=== PATIENT | female | born 1935 | race Caucasian/White ===

== ENCOUNTER → 2016-06-16 | Outpatient (CLI) | payer OTHER ==
[~2016-06-16] MED LIST: ASPEC325 PO; CLB/200 PO; CLC100X PO; GLIM4TAB2 PO; HYDR25TA4 PO; LOSA100T65 PO; OXYSR10 PO; RXC5 PO; SENN8.6T94; SIMV40TA4 PO; ZNTT/150 PO
[2016-06-16 12:48] LABS: ALT/SGPT 28 U/L (12-78); AST/SGOT 16 U/L (15-37); BLOOD UREA NITROGEN 32 mg/dl (7-18); BUN/CREATININE RATIO 21.6 (10-20); CALCIUM 9.5 mg/dl (8.5-10.1); CARBON DIOXIDE 29 mmol/L (21-32); CHLORIDE 103 mmol/L (98-107); GLUCOSE 142 mg/dl (70-99); SODIUM 140 mmol/L (136-145)
[2016-06-16 12:50] LABS: ALKALINE PHOSPHATASE 49 U/L (45-117)
[2016-06-16 13:00] LABS: ESTIMATED AVERAGE GLUCOSE 128 mg/dl; HA1C FLAG Normal (Normal)
== END | disposition home or self-care (01) ==
LOC: C.LABPVFM 08:31
PROVIDERS: ATTEND Nurse Practitioner Family
DX: E11.9 Type 2 diabetes mellitus without complications (principal); N18.9 Chronic kidney disease, unspecified

== ENCOUNTER → 2016-12-16 | Outpatient (CLI) | payer OTHER ==
[2016-12-16 13:52] LABS: BLOOD UREA NITROGEN 33 mg/dl (7-18); BUN/CREATININE RATIO 22.1 (10-20); CALCIUM 9.9 mg/dl (8.5-10.1); CARBON DIOXIDE 26 mmol/L (21-32); CHLORIDE 102 mmol/L (98-107); GLUCOSE 140 mg/dl (70-99); POTASSIUM 3.8 mmol/L (3.5-5.1); SODIUM 138 mmol/L (136-145)
[2016-12-16 13:56] LABS: ALKALINE PHOSPHATASE 46 U/L (45-117); ALT/SGPT 20 U/L (12-78); AST/SGOT 19 U/L (15-37); CHOLESTEROL 174 mg/dl (0-200); CHOLESTEROL/HDL RATIO 3.2; HDL CHOLESTEROL 54 mg/dl; LDL CHOLESTEROL CALCULATED 85 mg/dl; TRIGLYCERIDES 176 mg/dl (0-150); VERY LOW DENSITY LIPOPROT CALC 35 mg/dl
== END | disposition home or self-care (01) ==
LOC: C.LABPVFM 08:33
PROVIDERS: ATTEND Nurse Practitioner Family
DX: I10 Essential (primary) hypertension (principal); E11.9 Type 2 diabetes mellitus without complications; N18.9 Chronic kidney disease, unspecified

== ENCOUNTER → 2016-12-30 | Outpatient (CLI) | payer OTHER ==
[2016-12-30 12:28] LABS: HEMATOCRIT 42.6 % (37-47); MEAN CELL VOLUME 99.5 fL (80-100); MEAN CORPUSCULAR HEMOGLOBIN 32.7 pg (25-34); MEAN CORPUSCULAR HGB CONC 32.9 g/dl (32-36); PLATELET COUNT 249 K/uL (130-400); RED BLOOD COUNT 4.28 M/uL (4.2-5.4); WHITE BLOOD COUNT 9.67 K/uL (4.8-10.8)
== END | disposition home or self-care (01) ==
LOC: C.LABPVFM 08:32
PROVIDERS: ATTEND Nurse Practitioner Family
DX: E11.22 Type 2 diabetes mellitus with diabetic chronic kidney disease (principal); N18.9 Chronic kidney disease, unspecified

== ENCOUNTER → 2017-06-16 | Outpatient (CLI) | payer OTHER ==
[~2017-06-16] MED LIST changes: +RANI150T85 PO; -ZNTT/150 PO
[2017-06-16 13:36] LABS: HEMOGLOBIN A1C 6.2 % (4.5-5.6)
[2017-06-16 14:39] LABS: ALBUMIN 3.5 gm/dl (3.4-5.0); ALT/SGPT 20 U/L (12-78); AST/SGOT 17 U/L (15-37); BLOOD UREA NITROGEN 28 mg/dl (7-18); CALCIUM 9.4 mg/dl (8.5-10.1); CARBON DIOXIDE 27 mmol/L (21-32); CREATININE 1.38 mg/dl (0.60-1.20); GLUCOSE 124 mg/dl (70-99); POTASSIUM 3.8 mmol/L (3.5-5.1); SODIUM 138 mmol/L (136-145)
[2017-06-16 14:42] LABS: ALKALINE PHOSPHATASE 55 U/L (45-117); CHOLESTEROL 230 mg/dl (0-200); LDL CHOLESTEROL CALCULATED 140 mg/dl; TOTAL PROTEIN 7.3 gm/dl (6.4-8.2)
== END | disposition home or self-care (01) ==
LOC: C.LABPVFM 08:30
PROVIDERS: ATTEND Nurse Practitioner Family
DX: I12.9 Hypertensive chronic kidney disease with stage 1 through stage 4 chronic kidney disease, or unspecified chronic kidney disease (principal); E78.2 Mixed hyperlipidemia; E11.22 Type 2 diabetes mellitus with diabetic chronic kidney disease; N18.9 Chronic kidney disease, unspecified

== ENCOUNTER 2023-09-11 09:46 | Inpatient (IN) ==
[2023-09-11] MEDS: OPTIRAY 320 125ml IV ONE (10:00)
--- NOTE | 2023-09-11 10:08 | CT Scan Report ---
CT OF THE HEAD WITHOUT CONTRAST CLINICAL HISTORY: neuro deficit, acute stroke suspected COMPARISON STUDY: No previous studies for comparison. CT DOSE: 1198.48 mGy.cm TECHNIQUE: Helical axial images of the head were obtained without IV contrast. Automated exposure con trol was utilized for the study. A dose lowering technique was utilized adhering to the principles o f ALARA. FINDINGS: No acute intracranial hemorrhage is present. There is extensive hypodensity within the left MCA distribution consistent with an acute infarct. There is mild mass effect with sulcal effacement and mild compression of the left lateral ventricle. There is no evidence for herniation. Basal cister ns are patent. There are no extra-axial collections. Moderate presumed small vessel disease is presen t. IMPRESSION: 1. No acute intracranial hemorrhage. 2. Findings consistent with a large acute left MCA territory infarct. Mild mass effect with sulcal ef facement and mild compression of the left lateral ventricle. Findings discussed with Dr. Lucía delgadillo of dictation. ACT 112: Negative or not required by law. Electronically signed by: Zurdo Weiner M.D. 09/11/2023 10:06 AM
[2023-09-11 10:10] LABS: Basophils # (auto) 0.04 K/uL (0.00-0.20); Basophils % (auto) 0.4 %; Eosinophils # (auto) 0.07 K/uL (0.00-0.50); Eosinophils % (auto) 0.8 %; Hematocrit (blood only) 30.2 % (37.0-47.0); Hemoglobin 9.7 g/dl (12.0-16.0); Immature Granulocytes # (auto) 0.03 K/uL (0.01-0.20); Immature Granulocytes % (auto) 0.3 %; Lymphocytes # (auto) 1.16 K/uL (1.20-3.40); Lymphocytes % (auto) 12.5 %; Mean Corpuscular Hemoglobin 30.9 pg (25.0-34.0); Mean Corpuscular Hgb Conc 32.1 g/dL (32.0-36.0); Mean Corpuscular Volume 96.2 fL (80.0-100.0); Mean Platelet Volume 11.7 fL (9.4-12.4); Monocytes # (auto) 0.56 K/uL (0.11-0.59); Platelet Count 308 K/uL (130-400); RDW Coefficient of Variation 13.2 % (11.5-14.5); RDW Standard Deviation 46.6 fL (36.4-46.3); Red Blood Count 3.14 M/uL (4.20-5.40); White Blood Count 9.26 K/ul (4.8-10.8)
--- NOTE | 2023-09-11 10:17 | CT Scan Report ---
CT ANGIOGRAPHY OF THE NECK WITH CONTRAST CLINICAL HISTORY: neuro deficit, acute stroke suspected COMPARISON STUDY: No previous studies for comparison. Technique: CT angiography of the carotid and vertebral arteries was obtained using Optiray and 3D rec onstruction on an independent workstation. NASCET criteria was utilized. Automated exposure control was utilized for the study. A dose lowering technique was utilized adhering to the principles of ALA RA. Findings: Incidental note is made of several segmental pulmonary emboli within visualized portions of the right upper lung. There is interlobular septal thickening. Bilateral pleural effusions, right la rger left, are partially imaged. There are no cervical spine fractures. There is no cervical lymphade nopathy. There is medialization of the left vocal cord. Extensive plaque within the proximal right in ternal carotid artery results in severe stenosis with approximate 90% narrowing. There is extensive p laque within the proximal left internal carotid artery which results in 40% stenosis. The origins of the vertebral arteries are suboptimally assessed due to artifact. The vertebral arteries are patent. There is no aneurysm or dissection within the neck. IMPRESSION: 1. Severe stenosis (90%) of the proximal right internal carotid artery. 40% stenosis of the proximal left internal carotid artery. Extensive atherosclerotic plaque. 2. Several segmental pulmonary emboli within the right upper lobe. 3. Interstitial pulmonary edema with partially visualized bilateral pleural effusions. ACT 112: Negative or not required by law. Electronically signed by: Zurdo Weiner M.D. 09/11/2023 10:15 AM
[2023-09-11 10:21] LABS: INR 1.1 (0.9-1.1); Partial Thromboplastin Ratio 0.9; Partial Thromboplastin Time 23 Seconds (21-31); Prothrombin Time 11.8 Seconds (9.0-12.0)
--- NOTE | 2023-09-11 10:23 | CT Scan Report ---
CTA ANGIOGRAPHY OF THE HEAD CLINICAL HISTORY: neuro deficit, acute stroke suspected COMPARISON STUDY: No previous studies for comparison. TECHNIQUE: Helical axial images of the head were obtained following uneventful intravenous administr ation of 120 cc of Optiray. Sagittal and coronal reconstructions were viewed as well as maximal inten sity projections on an independent 3-D workstation. Automated exposure control was utilized for the study. A dose lowering technique was utilized adhering to the principles of ALARA. FINDINGS: There is abrupt occlusion of the distal left middle cerebral artery with trace flow within a few left sylvian vessels. This accounts for the acute infarct within left MCA distribution on head CT which will be reported separately. There is no acute intracranial hemorrhage. Mild mass effect is present. There is extensive plaque within bilateral cavernous carotids which results in moderate sten osis. The bilateral A1 and A2 segments are patent. The right M1 and M2 segments are patent. Severe st enoses within the posterior circulation are noted. Specifically, there are severe stenosis within the bilateral vertebral arteries as well as the basilar artery and right posterior cerebral artery. Ther e is persistence of the left posterior cerebral artery. IMPRESSION: 1. Occlusion of the distal left M1 segment with trace flow within a few sylvian vessels. This account s for the acute left MCA distribution infarct depicted on head CT. 2. Severe multifocal stenoses within the posterior circulation, as detailed above. 3. Extensive plaque within bilateral cavernous carotids which results in moderate stenosis of the yandel ateral cavernous carotids. ACT 112: Negative or not required by law. Electronically signed by: Zurdo Weiner M.D. 09/11/2023 10:20 AM
[2023-09-11 10:28] LABS: Appearance Urine Clear (Clear); Bacteria Urine Automated None Seen (None Seen); Bilirubin Urine Negative (Negative); Blood Urine Negative (Negative); Color Urine Yellow; Epithelial Cell Urine Auto 0-2 /hpf (0-2); Glucose Urine UA Negative (Negative); Ketones Urine Trace (Negative); Leukocyte Esterase Urine Trace (Negative); Nitrite Urine Negative (Negative); Protein Urine Negative (Negative); RBC Urine Automated 0-2 /hpf (0-2); Urobilinogen Urine Negative (Negative); WBC Urine Automated 0-5 /hpf (0-5)
[2023-09-11 10:33] LABS: Albumin Globulin Ratio 1.1 (0.9-2); Albumin Level 2.9 gm/dl (3.4-5.0); BUN Creatinine Ratio 33.6 (10-20); Bilirubin,Total 0.3 mg/dl (0.2-1.0); Creatinine Clr Calc Pharmacy 27.3 ml/min; Est GFR (African American) 37.8 ml/min; Est GFR (Non-African American) 32.6 ml/min; Globulin 2.7 gm/dl (2.5-4.0); Magnesium 2.2 mg/dl (1.7-2.4); Potassium 3.8 mmol/L (3.5-5.1); Total Protein 5.6 gm/dl (6.0-8.3)
--- NOTE | 2023-09-11 10:33 | Emergency Department Note ---
Impression & Plan Acute stroke due to ischemia, Internal carotid artery occlusion, Pulmonary emboli ED Provider Note NAME: ROJELIO LAWSON AGE: 87 SEX: Female INFORMANT: EMS, family ED PROVIDER(S): Siva Castrejon MD CHIEF COMPLAINT: Stroke alert PLAN: Disposition: Admitted Outpatient prescription management: none Referral: None MEDICAL DECISION MAKING: Patient presented because of strokelike symptoms. She was made stroke alert by prehospital medical command done by me. Patient was taken emergently to CT imaging. She was evaluated immediately upon returning back from imaging. The patient had a last known well time around 0500 hrs. Family states that she was altered around 0800 hrs. by reports from the [facility] care facility to them via phone call. Patient has a large acute MCA territory stroke on CT imaging. She has an NIH stroke scale approximately 30. The patient had an emergent consultation placed with [facility]roke, Dr. Busch. The case was discussed and reviewed. He did evaluate the imaging and was considering discussion with their interventional list. I did meet with the family and talk to them at length. The patient had previously outlined and family confirmed that she does not want to have any surgery, intervention or invasive procedure. She is a DNR/DNI. I discussed possible outcomes with this stroke. I did discuss case again with Dr. Busch. In light of the patient's pre-existing wishes and confirmation by family further care was deferred. He noted no invasive intervention or transfer at this time. He did recommend aspirin and normal stroke care. After neurology consultation radiology did note that the patient appears to have pulmonary emboli in the upper aspects of the chest on CT angiography of the neck. Patient's cardiac troponin is markedly elevated. Consultation was made with the [facility] hospitalist service. Case discussed and diagnostics were reviewed. Patient was evaluated in the ER for further management. Care/management discussed with: crm campaign manager Level of care consideration(s): After review of the information above and other included data, I feel the patient requires escalation of care to admission. tPA was considered however patient does not a candidate. Transfer for interventional stroke care considered however patient is not a candidate and family defers Triage Nursing notes: reviewed and agree them. Vital Signs: reviewed and remarkable for no significant abnormalities Additional History obtained from: EMS and family. Last known well time 0 500 Chronic Medical/Social Conditions affecting care: Diabetes Prior/ Outside/ External records reviewed: Primary care note from 08/10 reviewed. Patient was evaluated for her diabetic foot issue. Elected not to go the surgical route. Patient was noted to be in her right state of mind. Differential Diagnosis: CVA, TIA,Infection, dehydration, metabolic abnormality, hypo/hyperglycemia, electrolyte disturbance, anemia, hypoxia, cardiac sources, intracerebral event, toxicologic, neurologic, as well as other pathologies. Diagnostics, independently interpreted by me: ECG: Twelve-lead ECG reveals sinus tachycardia at 108 bpm. Left axis deviation LVH. Lateral ST depression. Cardiac Monitoring: Cardiac monitoring ordered by me: The patient was placed on continuous cardiac monitoring and observed. It revealed a normal sinus rhythm at 96 beats per minute. Medical decision rules: none Imaging studies: CT and CT angiogram head and neck are concerning for an acute left MCA stroke as well as pulmonary emboli. I refer you to the EMR for further details. HPI: 87 year old Female arrives for evaluation of strokelike symptoms. Last known well time was at 0500 hrs. Patient was then found by staff to be altered. They did notify family. Family stated around 8:00 this morning she was confused and not herself. She was acting abnormal. EMS was summoned. Family did arrive at her [facility]. They noted at that point the patient was aphasic and flaccid on the right side. No prior history of stroke. EMS thought patient was in an A-fib and she has no history of the same. She is not anticoagulated. History is limited secondary to the patient's aphasia and medical acuity PAST MEDICAL HISTORY: See Below, diabetes PAST SURGICAL HISTORY: See Below, SOCIAL HISTORY: See Below, retired HOME MEDICATIONS: See Below ALLERGIES: See Below VITALS: See Below PHYSICAL EXAMINATION: GENERAL: Awake, semialert,-appearing, in no distress HENT: Normocephalic, atraumatic. Oropharynx unremarkable. EYES: Normal conjunctiva. Sclera non-icteric. Fixed gaze to the left NECK: Inspection normal. Non-tender. Supple. No nuchal rigidity. FROM. No masses. RESPIRATORY: Clear to auscultation. No wheezes. No rales. Normal respiratory effort. CARDIAC: Nor borderline tachycardic mal rate. Irregular rhythm. No murmurs. No rubs. Extremities warm and well perfused. Pulses equal. No JVD. GI: Soft, non-distended. No tenderness to palpation. No rebound or guarding. No masses. RECTAL: Deferred. MUSCULOSKELETAL: Atraumatic. Chest examination reveals no tenderness. The back is symmetrical on inspection without obvious abnormality. There is no CVA tenderness to palpation. No joint edema. LOWER EXTREMITIES: Calves are equal size bilaterally and non-tender. 2+ edema. No discoloration. NEURO: Altered sensorium. Aphasic. Flaccid on the right upper and lower extremities. Gripping and some movement with the left upper and left lower extremity. Unable to fully assess cranial nerves due to inability to follow commands. NIH stroke scale approximately 30 SKIN: No rash or jaundice noted. PROCEDURES: none CRITICAL CARE: none OBSERVATION NOTE: none Past Med/Surg History Problem List (Updated 09/11/23 @ 11:14 by Chris Soto PA-C) Comfort measures only status Pulmonary emboli (Acute) Internal carotid artery occlusion (Acute) Acute stroke due to ischemia (Acute) PAD (peripheral artery disease) Diabetic foot ulcer with osteomyelitis Poor sleep Cognitive changes Abnormal ankle brachial index Diabetic foot ulcer (Acute) Weight loss Depression with anxiety Thickened nails Bradycardia Hypertension Diabetes mellitus Diet controlled Chronic kidney disease GERD (gastroesophageal reflux disease) Surgical History History of shoulder surgery History of total abdominal hysterectomy History of left knee surgery History of ovarian cystectomy Family History Father Myocardial infarction Brother Myocardial infarction Denies family history of Ovarian cancer Prostate cancer Breast cancer Colorectal cancer Social History Smoking Status: Unknown if ever smoked Second Hand Exposure: No; Do You Dip or Chew Tobacco: No; Hx Alcohol Use: No Hx Substance Use: No Preferred Language: Sinhala Communication Ability: Effective Visual Impairment: Limited Hearing Ability: Normal Engineering Program Analyst Required: No Beliefs That Will Affect Care: None marital status: / Current Living Situation: Alone current occupational status: retired How many Children do You have: 5 Feels Safe at Home: Yes Childhood Exposure to Second-Hand Smoke: Yes Diet: regular caffeine: Yes during the past year weight has: remained stable Dental Care, Regularly: No Physical Activity Frequency: Does not Exercise Seatbelt Use: always Sunscreen Use: No Assistive Devices: Cane, Glasses and Walker Allergies Allergies Allergy/AdvReac Type Severity Reaction Status Date / Time No Known Allergies Allergy Verified 09/11/23 11:22 Home Meds Home Medications Medication Instructions Recorded Confirmed famotidine 20 mg tablet 20 mg PO DAILY gerd 05/21/23 09/11/23 acetaminophen 500 mg tablet 500 mg PO BID fever or pain 08/15/23 09/11/23 (Tylenol Extra Strength) Previous Rx's Medication Instructions Recorded duloxetine 20 mg capsule,delayed 20 mg PO DAILY #30 caps 05/26/23 release hydrochlorothiazide 25 mg tablet 25 mg PO DAILY #90 tabs 07/26/23 losartan 50 mg tablet 50 mg PO DAILY #90 tabs 07/26/23 light wheelchair #1 ea 08/01/23 Results & Data (ED) Vital Signs Vital Signs - 24 hr 09/11/23 10:00 09/11/23 10:08 09/11/23 10:30 Temperature 36.9 C Temperature Source Oral Pulse Rate 112 H 112 H 105 H Respiratory Rate 18 20 Respiratory Effort / Characteristics Non-Labored Spontaneous Respiratory Depth Normal Respiratory Pattern Regular Blood Pressure 131/91 146/92 H Blood Pressure Mean 104 120 Pulse Oximetry 94 98 Oxygen Delivery Method Room Air Room Air Sepsis Recent Fever Within 48 Hours No Sepsis New/Unexplained Change in Mental Status N/A Sepsis Action Taken by Nursing No Action Required 09/11/23 11:00 Temperature Temperature Source Pulse Rate 96 H Respiratory Rate 20 Respiratory Effort / Characteristics Respiratory Depth Respiratory Pattern Blood Pressure 140/91 Blood Pressure Mean 108 Pulse Oximetry 98 Oxygen Delivery Method Room Air Sepsis Recent Fever Within 48 Hours Sepsis New/Unexplained Change in Mental Status Sepsis Action Taken by Nursing Laboratory Data 09/11/23 09:59 09/11/23 09:59 Lab Results 09/11/23 09/11/23 Range/Units 09:59 10:08 WBC 9.26 (4.8-10.8) K/ul RBC 3.14 L (4.20-5.40) M/uL Hgb 9.7 L (12.0-16.0) g/dl Hct 30.2 L (37.0-47.0) % MCV 96.2 (80.0-100.0) fL MCH 30.9 (25.0-34.0) pg MCHC 32.1 (32.0-36.0) g/dL RDW Std Deviation 46.6 H (36.4-46.3) fL RDW Coeff of Roel 13.2 (11.5-14.5) % Plt Count 308 (130-400) K/uL MPV 11.7 (9.4-12.4) fL Immature Gran % (Auto) 0.3 % Neut % (Auto) 80.0 % Lymph % (Auto) 12.5 % Mccracken % (Auto) 6.0 % Eos % (Auto) 0.8 % Baso % (Auto) 0.4 % Neut # (Auto) 7.40 H (1.40-6.50) K/uL Lymph # (Auto) 1.16 L (1.20-3.40) K/uL Mccracken # (Auto) 0.56 (0.11-0.59) K/uL Eos # (Auto) 0.07 (0.00-0.50) K/uL Baso # (Auto) 0.04 (0.00-0.20) K/uL Immature Gran # (Auto) 0.03 (0.01-0.20) K/uL PT 11.8 (9.0-12.0) Seconds INR 1.1 (0.9-1.1) APTT 23 (21-31) Seconds PTT Ratio 0.9 Sodium 133 L (136-145) mmol/L Potassium 3.8 (3.5-5.1) mmol/L Chloride 103 (98-107) mmol/L Carbon Dioxide 20 L (21-32) mmol/L Anion Gap 10 (3-11) BUN 48 H (6-23) mg/dl Creatinine 1.43 H (0.6-1.2) mg/dl Est Cr Clr Drug Dosing 27.3 ml/min Est GFR ( Amer) 37.8 ml/min Est GFR (Non-Af Amer) 32.6 ml/min BUN/Creatinine Ratio 33.6 H (10-20) Glucose 177 H (70-99(Fasting)) mg/dl Calcium 8.0 L (8.6-10.3) mg/dl Magnesium 2.2 (1.7-2.4) mg/dl Total Bilirubin 0.3 (0.2-1.0) mg/dl AST 23 (13-39) U/L ALT 20 (7-52) U/L Alkaline Phosphatase 55 (34-104) U/L Troponin I High Sens 4411.3 H* (0-14) pg/ml Total Protein 5.6 L (6.0-8.3) gm/dl Albumin 2.9 L (3.4-5.0) gm/dl Globulin 2.7 (2.5-4.0) gm/dl Albumin/Globulin Ratio 1.1 (0.9-2) Urine Color Yellow Urine Appearance Clear (Clear) Urine pH 5.0 (4.5-7.5) Ur Specific [place] 1.020 (1.000-1.030) Urine Protein Negative (Negative) Urine Glucose (UA) Negative (Negative) Urine Ketones Trace H (Negative) Urine Blood Negative (Negative) Urine Nitrite Negative (Negative) Urine Bilirubin Negative (Negative) Urine Urobilinogen Negative (Negative) Ur Leukocyte Esterase Trace H (Negative) Urine WBC (Auto) 0-5 (0-5) /hpf Urine RBC (Auto) 0-2 (0-2) /hpf U Hyaline Cast (Auto) 6-10 H (0-2) /lpf U Epithel Cells (Auto) 0-2 (0-2) /hpf Urine Bacteria (Auto) None Seen (None Seen) Blood Type A Positive Antibody Screen NEGATIVE Administered Medications Lorazepam 0.5 mg/ Syringe 0.5 mls @ 2 mls/min IV Q8H BEHZAD Stop: 10/11/23 12:59 Last Admin: 09/11/23 13:02 Dose: 2 mls/min Documented By: KD Discontinued Medications Aspirin (Aspirin 300 Mg Supp) 300 mg WA ONE ONE Stop: 09/11/23 10:43 Last Admin: 09/11/23 11:00 Dose: 300 mg Documented By: DEAN Acetaminophen (Ofirmev) 1,000 mg in 100 mls @ 400 mls/hr IV NOW STA Stop: 09/11/23 11:12 Last Infusion: 09/11/23 11:47 Dose: Infused Documented By: Admin: 09/11/23 11:19 Dose: 400 mls/hr Documented By: DEAN Ioversol (Optiray 320 125ml) 120 ml IV ONCE ONE Stop: 09/11/23 09:59 Last Admin: 09/11/23 10:00 Dose: 120 ml Documented By: ELEANOR Imaging Data Radiologist's Impression: Chest X-Ray 09/11/23 09:43 XR chest 1V portable CLINICAL HISTORY: neuro deficit, acute stroke suspected COMPARISON STUDY: Chest radiograph August 20, 2013. FINDINGS: Right shoulder arthroplasty is incidentally noted. There is no pneumothorax. Elevation of the left hemidiaphragm is again noted. There is cardiomegaly with interstitial thickening. Small to moderate left and small right pleural effusions are present. IMPRESSION: Cardiomegaly with interstitial pulmonary edema. Small to moderate left and small right pleural effusions. ACT 112: Negative or not required by law. Electronically signed by: Zurdo Weiner M.D. 09/11/2023 10:[address] 09/11/23 09:43 CT OF THE HEAD WITHOUT CONTRAST CLINICAL HISTORY: neuro deficit, acute stroke suspected COMPARISON STUDY: No previous studies for comparison. CT DOSE: 1198.48 mGy.cm TECHNIQUE: Helical axial images of the head were obtained without IV contrast. Automated exposure control was utilized for the study. A dose lowering technique was utilized adhering to the principles of ALARA. FINDINGS: No acute intracranial hemorrhage is present. There is extensive hypodensity within the left MCA distribution consistent with an acute infarct. There is mild mass effect with sulcal effacement and mild compression of the left lateral ventricle. There is no evidence for herniation. Basal cisterns are patent. There are no extra-axial collections. Moderate presumed small vessel disease is present. IMPRESSION: 1. No acute intracranial hemorrhage. 2. Findings consistent with a large acute left MCA territory infarct. Mild mass effect with sulcal effacement and mild compression of the left lateral ventricle. Findings discussed with Dr. Castrejon time of dictation. ACT 112: Negative or not required by law. Electronically signed by: Zurdo Weiner M.D. 09/11/2023 10:06 AM Head CTA 09/11/23 09:43 CTA ANGIOGRAPHY OF THE HEAD CLINICAL HISTORY: neuro deficit, acute stroke suspected COMPARISON STUDY: No previous studies for comparison. TECHNIQUE: Helical axial images of the head were obtained following uneventful intravenous administration of 120 cc of Optiray. Sagittal and coronal reconstructions were viewed as well as maximal intensity projections on an independent 3-D workstation. Automated exposure control was utilized for the study. A dose lowering technique was utilized adhering to the principles of ALARA. FINDINGS: There is abrupt occlusion of the distal left middle cerebral artery with trace flow within a few left sylvian vessels. This accounts for the acute infarct within left MCA distribution on head CT which will be reported separately. There is no acute intracranial hemorrhage. Mild mass effect is present. There is extensive plaque within bilateral cavernous carotids which results in moderate stenosis. The bilateral A1 and A2 segments are patent. The right M1 and M2 segments are patent. Severe stenoses within the posterior circulation are noted. Specifically, there are severe stenosis within the bilateral vertebral arteries as well as the basilar artery and right posterior cerebral artery. There is persistence of the left posterior cerebral artery. IMPRESSION: 1. Occlusion of the distal left M1 segment with trace flow within a few sylvian vessels. This accounts for the acute left MCA distribution infarct depicted on head CT. 2. Severe multifocal stenoses within the posterior circulation, as detailed above. 3. Extensive plaque within bilateral cavernous carotids which results in moderate stenosis of the bilateral cavernous carotids. ACT 112: Negative or not required by law. Electronically signed by: Zurdo Weiner M.D. 09/11/2023 10:20 AM Neck CTA 09/11/23 09:43 CT ANGIOGRAPHY OF THE NECK WITH CONTRAST CLINICAL HISTORY: neuro deficit, acute stroke suspected COMPARISON STUDY: No previous studies for comparison. Technique: CT angiography of the carotid and vertebral arteries was obtained using Optiray and 3D reconstruction on an independent workstation. NASCET criteria was utilized. Automated exposure control was utilized for the study. A dose lowering technique was utilized adhering to the principles of ALARA. Findings: Incidental note is made of several segmental pulmonary emboli within visualized portions of the right upper lung. There is interlobular septal thickening. Bilateral pleural effusions, right larger left, are partially imaged. There are no cervical spine fractures. There is no cervical lymphadenopathy. There is medialization of the left vocal cord. Extensive plaque within the proximal right internal carotid artery results in severe stenosis with approximate 90% narrowing. There is extensive plaque within the proximal left internal carotid artery which results in 40% stenosis. The origins of the vertebral arteries are suboptimally assessed due to artifact. The vertebral arteries are patent. There is no aneurysm or dissection within the neck. IMPRESSION: 1. Severe stenosis (90%) of the proximal right internal carotid artery. 40% stenosis of the proximal left internal carotid artery. Extensive atherosclerotic plaque. 2. Several segmental pulmonary emboli within the right upper lobe. 3. Interstitial pulmonary edema with partially visualized bilateral pleural effusions. ACT 112: Negative or not required by law. Electronically signed by: Zurdo Weiner M.D. 09/11/2023 10:15 AM Discharge Plan Visit Data Chief Complaint: Stroke Alert ED Provider: Siva Castrejon Discharge Problem: Acute stroke due to ischemia, Internal carotid artery occlusion, Pulmonary emboli Patient Disposition: Admitted As Inpatient Discharge Instructions Interventions: ED Discharge Assessment Last Done: 09/11/23 12:07
[2023-09-11 10:47] LABS: Troponin I High Sensitivity 4411.3 pg/ml (0-14)
--- NOTE | 2023-09-11 10:54 | History & Physical Report ---
Date of Service September 11, 2023 Assessment & Plan (1) Comfort measures only status: Plan: Admit to [facility] on comfort measures only status Patient presented to the ED via EMS as a stroke alert with last known well of 5 AM this morning after she was found by staff at [facility] to be aphasic, with flaccidity of the right side and right face. CT of the head with without contrast, CTA of the head/neck shows signs consistent with a new large left MCA territorial infarct. Mild mass effect is also noted. In addition to her acute CVA, the patient was also noted to have several segmental pulmonary emboli in the right upper lobe on CTA of the neck Patient's EKG is concerning for possible septal infarct as well, initial high- sensitivity troponin elevated at 4411. Patient's family would like to transition to comfort measures Comfort measures has been started, suspect the patient will pass during this admission I have discontinued the rectal aspirin that had been ordered by the emergency department at the recommendation of [facility] as this recommendation had been made prior to the rest of her workup coming back and decision for comfort measures to be started. We will keep the patient n.p.o. at this time as she is extremely high risk of aspiration and is not able to safely take any p.o. intake at this time (2) Pulmonary emboli: Plan: Several segmental pulmonary emboli were noted in the right upper lobe on CTA of the neck Systemic anticoagulation will not be started as patient has been admitted on comfort measures only status (3) Acute stroke due to ischemia: Plan: See comfort measures only status (4) Internal carotid artery occlusion: Plan: See comfort measures only status Plan The patient was discussed with Dr. Henson at the time of the admission History of Present Illness Chief Complaint: stroke alert Primary Care Provider: KATHY Moreira Becky is an 87-year-old female with a past medical history significant for osteomyelitis of the left foot, diabetes mellitus type 2, hypertension, anxiety, peripheral arterial disease, and CKD who presented to the [facility] ED via EMS on 09/11/2023 as a stroke alert. Per the ED intake information, the patient is currently residing at the [facility]. Her last known well was approximately 5 AM this morning when she woke in her normal mental status. At approximately 9 AM this morning she was found to be aphasic, flaccid on the right side, and with right-sided facial droop. Patient was unable to follow commands or answer questions on arrival, she was only groaning. On arrival to the ED she was noted to be tachycardic with heart rate of [address] of the head and brain without contrast was read as negative for acute intracranial hemorrhage. But findings were consistent with a large acute left MCA territory infarct. Mild mass effect with sulcal effacement and mild compression of the left lateral ventricle were also noted. CTA of the head was read as occlusion of the distal left M1 segment with trace flow within a few sylvian vessels. This accounts for the acute left MCA distribution infarct depicted on head CT. Severe multifocal stenoses within the posterior circulation as detailed above. Extensive plaque within the bilateral cavernous carotids which results in moderate stenosis of the bilateral cavernous carotids. Labs were significant for Hemoglobin 9.7, down from 12.4 as of 05/21/2023, Initial high-sensitivity troponin of 4411. CTA of the neck was read as severe stenosis (90%) of the proximal right internal carotid artery. 40% stenosis of the proximal left internal carotid artery. Extensive atherosclerotic plaque. Several segmental pulmonary emboli within the right upper lobe. Interstitial pulmonary edema with partly visualized bilateral pleural effusions. The ED staff did discuss the case with Flor telestroke provider who also assessed the patient prior to the patient being known to have multiple subsegmental PEs, pulmonary edema, and large left pleural effusion. At that time they had recommended giving the patient aspirin. 300 mg of rectal aspirin had been ordered prior to admission. At the time of the exam the patient was lying in bed in no acute distress, she has her eyes open but is not interacting in any meaningful way. I discussed the patient's condition and multiple acute life-threatening findings on arrival with the patient's daughter/POA and daughter's who is bedside. At this time they would like us to admit the patient on comfort care with goals of relieving pain, anxiety/agitation, and distress until she passes from her acute illness. I did discuss with the patient's nurse at bedside that we will not be giving her the rectal Tylenol ordered by the ED staff as she is coming in on comfort measures and this will not change the patient's condition, could increase distress. I personally have canceled this order. Please refer to Dr. Henson's attestation for any changes to the treatment plan Allergies Allergy/AdvReac Type Severity Reaction Status Date / Time No Known Allergies Allergy Verified 09/11/23 11:22 Home Medications Medication Instructions Recorded Confirmed Type famotidine 20 mg tablet 20 mg PO DAILY gerd 05/21/23 09/11/23 History duloxetine 20 mg capsule,delayed 20 mg PO DAILY #30 caps 05/26/23 09/11/23 Rx release hydrochlorothiazide 25 mg tablet 25 mg PO DAILY #90 tabs 07/26/23 09/11/23 Rx losartan 50 mg tablet 50 mg PO DAILY #90 tabs 07/26/23 09/11/23 Rx light wheelchair #1 ea 08/01/23 08/05/23 Rx acetaminophen 500 mg tablet 500 mg PO BID fever or pain 08/15/23 09/11/23 History (Tylenol Extra Strength) Past Med/Surg History Problem List (Updated 09/11/23 @ 11:14 by Chris Soto PA-C) Comfort measures only status Pulmonary emboli (Acute) Internal carotid artery occlusion (Acute) Acute stroke due to ischemia (Acute) PAD (peripheral artery disease) Diabetic foot ulcer with osteomyelitis Poor sleep Cognitive changes Abnormal ankle brachial index Diabetic foot ulcer (Acute) Weight loss Depression with anxiety Thickened nails Bradycardia Hypertension Diabetes mellitus Diet controlled Chronic kidney disease GERD (gastroesophageal reflux disease) Surgical History History of shoulder surgery History of total abdominal hysterectomy History of left knee surgery History of ovarian cystectomy Family History Father Myocardial infarction Brother Myocardial infarction Denies family history of Ovarian cancer Prostate cancer Breast cancer Colorectal cancer Social History Smoking Status: Never smoker Second Hand Exposure: No; Do You Dip or Chew Tobacco: No; Hx Alcohol Use: No Hx Substance Use: No Preferred Language: Japanese Communication Ability: Impaired Communication Ability Comment: FORM [employer]MS Visual Impairment: Limited Hearing Ability: Normal Final Installer Inspector Required: No Beliefs That Will Affect Care: None marital status: / Current Living Situation: Alone current occupational status: retired How many Children do You have: 5 Feels Safe at Home: Yes Childhood Exposure to Second-Hand Smoke: Yes Diet: regular caffeine: Yes during the past year weight has: remained stable Dental Care, Regularly: No Physical Activity Frequency: Does not Exercise Seatbelt Use: always Sunscreen Use: No Assistive Devices: Cane, Glasses and Walker Physical Exam Physical Exam: Physical Exam: General: Lying in bed with eye's open, currently responsive to pain only, no acute distress HEENT: Normocephalic, atraumatic, no scleral icterus, pupils around round, symmetrical, and reactive to light, dry mucus membranes, trachea midline, no thyromegaly Chest/Pulm: No respiratory distress, symmetrical chest expansion, decreased breath sounds in the BL lower lung flower and mid left lung field, expiratory wheezing and crackles in all other lung flower Cardiac: tachycardic rate, regular rhythm, no murmurs noted Abdomen: Negative for ascites and bruising, normoactive bowel sounds, soft, patient does not guard abdomen or withdrawal from pain during abdominal palpation Musculoskeletal: Patient intermittently moving her BL upper and lower extremities but does not appear associated with intention Extremities: Radial, dorsalis pedis, and posterior tibial pulses are intact and symmetrical, 2+ pitting edema noted in the BL LE's Skin: Warm, dry, no rashes , lesions, or scars noted Neuro: Currently responding to pain only, pupils are round, symmetrical and responsive to light Psych: No acute distress Results & Data Results & Data Vital Signs (Past 12 Hours) Vital Signs Temp Pulse Resp BP Pulse Ox O2 Del Method 09/11/23 10:30 105 H 20 146/92 H 98 Room Air 09/11/23 10:08 112 H 09/11/23 10:00 36.9 C 112 H 18 131/91 94 Room Air Laboratory Results Abnormal lab results 09/11/23 09/11/23 Range/Units 09:59 10:08 RBC 3.14 L (4.20-5.40) M/uL Hgb 9.7 L (12.0-16.0) g/dl Hct 30.2 L (37.0-47.0) % RDW Std Deviation 46.6 H (36.4-46.3) fL Neut # (Auto) 7.40 H (1.40-6.50) K/uL Lymph # (Auto) 1.16 L (1.20-3.40) K/uL Sodium 133 L (136-145) mmol/L Carbon Dioxide 20 L (21-32) mmol/L BUN 48 H (6-23) mg/dl Creatinine 1.43 H (0.6-1.2) mg/dl BUN/Creatinine Ratio 33.6 H (10-20) Glucose 177 H (70-99(Fasting)) mg/dl Calcium 8.0 L (8.6-10.3) mg/dl Troponin I High Sens 4411.3 H* (0-14) pg/ml Total Protein 5.6 L (6.0-8.3) gm/dl Albumin 2.9 L (3.4-5.0) gm/dl Urine Ketones Trace H (Negative) Ur Leukocyte Esterase Trace H (Negative) U Hyaline Cast (Auto) 6-10 H (0-2) /lpf Diagnostic Findings Chest X-Ray 09/11/23 09:43 XR chest 1V portable CLINICAL HISTORY: neuro deficit, acute stroke suspected COMPARISON STUDY: Chest radiograph August 20, 2013. FINDINGS: Right shoulder arthroplasty is incidentally noted. There is no pneumothorax. Elevation of the left hemidiaphragm is again noted. There is cardiomegaly with interstitial thickening. Small to moderate left and small right pleural effusions are present. IMPRESSION: Cardiomegaly with interstitial pulmonary edema. Small to moderate left and small right pleural effusions. ACT 112: Negative or not required by law. Electronically signed by: Zurdo Weiner M.D. 09/11/2023 10:[address] 09/11/23 09:43 CT OF THE HEAD WITHOUT CONTRAST CLINICAL HISTORY: neuro deficit, acute stroke suspected COMPARISON STUDY: No previous studies for comparison. CT DOSE: 1198.48 mGy.cm TECHNIQUE: Helical axial images of the head were obtained without IV contrast. Automated exposure control was utilized for the study. A dose lowering technique was utilized adhering to the principles of ALARA. FINDINGS: No acute intracranial hemorrhage is present. There is extensive hypodensity within the left MCA distribution consistent with an acute infarct. There is mild mass effect with sulcal effacement and mild compression of the left lateral ventricle. There is no evidence for herniation. Basal cisterns are patent. There are no extra-axial collections. Moderate presumed small vessel disease is present. IMPRESSION: 1. No acute intracranial hemorrhage. 2. Findings consistent with a large acute left MCA territory infarct. Mild mass effect with sulcal effacement and mild compression of the left lateral ventricle. Findings discussed with Dr. Castrejon time of dictation. ACT 112: Negative or not required by law. Electronically signed by: Zurdo Weiner M.D. 09/11/2023 10:06 AM Head CTA 09/11/23 09:43 CTA ANGIOGRAPHY OF THE HEAD CLINICAL HISTORY: neuro deficit, acute stroke suspected COMPARISON STUDY: No previous studies for comparison. TECHNIQUE: Helical axial images of the head were obtained following uneventful intravenous administration of 120 cc of Optiray. Sagittal and coronal re constructions were viewed as well as maximal intensity projections on an independent 3-D workstation. Automated exposure control was utilized for the study. A dose lowering technique was utilized adhering to the principles of ALARA. FINDINGS: There is abrupt occlusion of the distal left middle cerebral artery with trace flow within a few left sylvian vessels. This accounts for the acute infarct within left MCA distribution on head CT which will be reported separately. There is no acute intracranial hemorrhage. Mild mass effect is present. There is extensive plaque within bilateral cavernous carotids which results in moderate stenosis. The bilateral A1 and A2 segments are patent. The right M1 and M2 segments are patent. Severe stenoses within the posterior circulation are noted. Specifically, there are severe stenosis within the bilateral vertebral arteries as well as the basilar artery and right posterior cerebral artery. There is persistence of the left posterior cerebral a rtery. IMPRESSION: 1. Occlusion of the distal left M1 segment with trace flow within a few sylvian vessels. This accounts for the acute left MCA distribution infarct depicted on head CT. 2. Severe multifocal stenoses within the posterior circulation, as detailed above. 3. Extensive plaque within bilateral cavernous carotids which results in moderate stenosis of the bilateral cavernous carotids. ACT 112: Negative or not required by law. Electronically signed by: Zurdo Weiner M.D. 09/11/2023 10:20 AM Neck CTA 09/11/23 09:43 CT ANGIOGRAPHY OF THE NECK WITH CONTRAST CLINICAL HISTORY: neuro deficit, acute stroke suspected COMPARISON STUDY: No previous studies for comparison. Technique: CT angiography of the carotid and vertebral arteries was obtained using Optiray and 3D reconstruction on an independent workstation. NASCET criteria was utilized. Automated exposure control was utilized for the study. A dose lowering technique was utilized adhering to the principles of ALARA. Findings: Incidental note is made of several segmental pulmonary emboli within visualized portions of the right upper lung. There is interlobular septal thickening. Bilateral pleural effusions, right larger left, are partially imaged. There are no cervical spine fractures. There is no cervical lymphadenopathy. There is medialization of the left vocal cord. Extensive plaque within the proximal right internal carotid artery results in severe stenosis with approximate 90% narrowing. There is extensive plaque within the proximal left internal carotid artery which results in 40% stenosis. The origins of the vertebral arteries are suboptimally assessed due to artifact. The vertebral arteries are patent. There is no aneurysm or dissection within the neck. IMPRESSION: 1. Severe stenosis (90%) of the proximal right internal carotid artery. 40% stenosis of the proximal left internal carotid artery. Extensive atherosclerotic plaque. 2. Several segmental pulmonary emboli within the right upper lobe. 3. Interstitial pulmonary edema with partially visualized bilateral pleural effusions. ACT 112: Negative or not required by law. Electronically signed by: Zurdo Weiner M.D. 09/11/2023 10:15 AM ECG Additional Comments: EKG shows sinus tachycardia With new ST segment elevations in the septal leads with reciprocal depression in the lateral leads Code Status & VTE Plan Code Status DNR/DNI VTE Prophylaxis Plan VTE Prophylaxis will be ordered: No Supervising Physician Co-Signing Physician Notes 87-year-old female with a past medical history significant for osteomyelitis of the left foot, diabetes mellitus type 2, hypertension, anxiety, peripheral arterial disease, and CKD who presented to the [facility] ED via EMS on 09/11/2023 as a stroke alert, she was found to be aphasic, flaccid on the right side, and with right-sided facial droop around 9 am. Patient was unable to follow commands or answer questions on arrival, she was only groaning. On arrival to the ED she was noted to be tachycardic with heart rate of [address] of the head and brain without contrast was read as negative for acute intracranial hemorrhage. But findings were consistent with a large acute left MCA territory infarct. She was also noticed to have PE. Family wants comfort care assesment and plan discussed with Chris Soto, agree with plan PG Care Time/CCT Total # of Minutes Spent Total Time Spent with Patient: Total time spent is greater than 50% in coordination of care (as documented) at patient's floor/unit and/or counseling patient: Coding [place] [address] INT INP/OBS CARE MIN Patient Type Established Medical Decision Making High Complexity Diagnoses Comfort measures only status Z51.5 Pulmonary emboli I26.99 Acute stroke due to ischemia I63.9 Internal carotid artery occlusion I65.29
--- NOTE | 2023-09-11 10:54 | XRay Report ---
XR chest 1V portable CLINICAL HISTORY: neuro deficit, acute stroke suspected COMPARISON STUDY: Chest radiograph August 20, 2013. FINDINGS: Right shoulder arthroplasty is incidentally noted. There is no pneumothorax. Elevation of t he left hemidiaphragm is again noted. There is cardiomegaly with interstitial thickening. Small to mo derate left and small right pleural effusions are present. IMPRESSION: Cardiomegaly with interstitial pulmonary edema. Small to moderate left and small right pleural effusi ons. ACT 112: Negative or not required by law. Electronically signed by: Zurdo Weiner M.D. 09/11/2023 10:53 AM
[2023-09-11] MEDS: ASPIRIN 300 MG SUPP PR ONE (11:00)
[2023-09-11] MEDS ORDERED: ONDANSETRON INJ 2 MG/ML 2 ML VIAL IV PRN (11:05)
[2023-09-11] MEDS ORDERED: PROMETHAZINE HCL 12.5 MG in SODIUM CHLORIDE 0.9% 50 ML IV PRN (11:05)
[2023-09-11] MEDS ORDERED: LORazepam 0.5 MG in SYRINGE 0.25 ML IV PRN (11:05)
[2023-09-11] MEDS: ACETAMINOPHEN 1,000 MG/100 ML VIAL IV STA (11:19)
[2023-09-11] MEDS: LORazepam 0.5 MG in SYRINGE 0.25 ML IV SCH (13:02)
[2023-09-11] MEDS: MoRPHine SULFATE 2 MG/ML CARP IV PRN ×2 (13:33→18:16)
--- NOTE | 2023-09-11 14:29 | Electrocardiogram Report ---
Test Reason : Blood Pressure : / mmHG Vent. Rate : 108 BPM Atrial Rate : 108 BPM P-R Int : 172 ms QRS Dur : 122 ms QT Int : 356 ms P-R-T Axes : 026 -54 127 degrees QTc Int : 477 ms Sinus tachycardia Left axis deviation Minimal voltage criteria for LVH, may be normal variant ( Luis product ) Left bundle branch block Abnormal ECG When compared with ECG of 21-MAY-2023 12:54, Left bundle branch block is now Present Confirmed by Husam Mon ([id number]) on 09/11/2023 2:28:53 PM Referred By: REFERRED SELF Confirmed By:Husam Mon
[2023-09-11] MEDS: LORazepam 0.5 MG in SYRINGE 0.25 ML IV PRN (18:16)
[2023-09-11] MEDS: GLYCOPYRROLATE 0.2 MG/ML VIAL IV PRN (18:44)
[2023-09-11] MEDS ORDERED: LORazepam 1 MG in SYRINGE 0.5 ML IV PRN (18:54)
[2023-09-11] MEDS: LORazepam 1 MG in SYRINGE 0.5 ML IV ONE (19:20)
--- NOTE | 2023-09-12 10:53 | Hospitalist Progress Note ---
Date of Service September 12, 2023 Assessment & Plan (1) Comfort measures only status: Plan: Patient presented to the ED from [place] after found to be aphasic, with flaccidity of the right side and right face CT head w/ w/o contrast, CTA of the head/neck shows signs consistent with a new large left MCA territorial infarct. Mild mass effect is also noted. Also noted to have several segmental pulmonary emboli in the right upper lobe on CTA of the neck. EKG concerning for possible septal infarct as well, initial high-sensitivity troponin elevated at 4411. Patients family elected for comfort measures only status - scheduled ativan - prn ativan, zofran, morphine and robinul (2) Pulmonary emboli: Plan: Several segmental pulmonary emboli were noted in the right upper lobe on CTA of the neck Systemic anticoagulation will not be started as patient has been admitted on comfort measures only status (3) Acute stroke due to ischemia: Plan: CT head w/ w/o contrast, CTA of the head/neck shows signs consistent with a new large left MCA territorial infarct. Mild mass effect is also noted (4) Internal carotid artery occlusion: Plan: See comfort measures only status Plan Dispo: continued inpatient stay, comfort measures only Family updated at bedside 09/11 Admission and Anticipated Discharge Date Admission Date: September 11, 2023 Supervising Physician Co-Signing Physician Notes PA Supervision Note: I did not personally see or examine the patient today, but I verified all pulido points of MARCO Marcelo's assessment and plan with the following exceptions/additions: None Subjective Patient resting at time of exam, allowed to sleep. Family reports that she was restless overnight but better today. Review of Systems Review of Systems: Unobtainable due to reduced consciousness Physical Exam Physical Exam: resting appears comfortable tachycardic edematous extremities Results & Data Results & Data Vital Signs (Past 12 Hours) Vital Signs O2 Del Method 09/12/23 07:25 Room Air PG Care Time/CCT Total # of Minutes Spent Total Time Spent with Patient: Total time spent is greater than 50% in coordination of care (as documented) at patient's floor/unit and/or counseling patient: Coding Level of Care Code 10094 SUB INP/OBS CARE 04/07MIN Diagnoses Comfort measures only status Z51.5 Pulmonary emboli I26.99 Acute stroke due to ischemia I63.9 Internal carotid artery occlusion I65.29
--- NOTE | 2023-09-12 23:30 | Death Pronouncement Note ---
Date of Service September 12, 2023 Pronouncement Note Admission Date Admission Date: September 11, 2023 Contributing Factors (1) Comfort measures only status: (2) Pulmonary emboli: (3) Acute stroke due to ischemia: (4) Internal carotid artery occlusion: Summary Additional details: I was called to pronounce the of Becky Coffman :[id number] by nursing on 09/12/2023 ~11:20PM. Upon entering the room, the patient was found to be in a terminal state. Patient was unresponsive to tactile stimuli. Patient unresponsive to corneal and pupillary reflexes. On cardiopulmonary exam, no carotid or radial pulses found and pt without spontaneous heart tones or respirations. Time of was pronounced by me on 09/12/2023 at 23:26. Attending physician was notified. Next of kin was notified by nursing. Additional Data Attending physician: Katherine Gagnon MD Resident Activity Tracking Resident Involvement: Resident Care Provided Care Provided: Adult [facility] Medicine
--- NOTE | 2023-09-13 09:07 | Discharge Summary ---
Discharge Summary Date of Service September 13, 2023 Principal Dx & Hospital Course #1 = Principal Diagnosis (1) Comfort measures only status: Patient presented to the ED from [facility] after found to be aphasic, with flaccidity of the right side and right face CT head w/ w/o contrast, CTA of the head/neck shows signs consistent with a new large left MCA territorial infarct. Mild mass effect is also noted. Also noted to have several segmental pulmonary emboli in the right upper lobe on CTA of the neck. EKG concerning for possible septal infarct as well, initial high-sensitivity troponin elevated at 4411. Patients family elected for comfort measures only status. Becky on 09/12/2023 23:26 (2) Pulmonary emboli: Several segmental pulmonary emboli were noted in the right upper lobe on CTA of the neck Systemic anticoagulation will not be started as patient has been admitted on comfort measures only status (3) Acute stroke due to ischemia: CT head w/ w/o contrast, CTA of the head/neck shows signs consistent with a new large left MCA territorial infarct. Mild mass effect is also noted (4) Internal carotid artery occlusion: Plan Patient Notes For Next Care Provider Patient Admission HPI Per Admitting Provider Becky is an 87-year-old female with a past medical history significant for osteomyelitis of the left foot, diabetes mellitus type 2, hypertension, anxiety, peripheral arterial disease, and CKD who presented to the [facility] ED via EMS on 09/11/2023 as a stroke alert. Per the ED intake information, the patient is currently residing at the [facility]. Her last known well was approximately 5 AM this morning when she woke in her normal mental status. At approximately 9 AM this morning she was found to be aphasic, flaccid on the right side, and with right-sided facial droop. Patient was unable to follow commands or answer questions on arrival, she was only groaning. On arrival to the ED she was noted to be tachycardic with heart rate of [address] of the head and brain without contrast was read as negative for acute intracranial hemorrhage. But findings were consistent with a large acute left MCA territory infarct. Mild mass effect with sulcal effacement and mild compression of the left lateral ventricle were also noted. CTA of the head was read as occlusion of the distal left M1 segment with trace flow within a few sylvian vessels. This accounts for the acute left MCA distribution infarct depicted on head CT. Severe multifocal stenoses within the posterior circulation as detailed above. Extensive plaque within the bilateral cavernous carotids which results in moderate stenosis of the bilateral cavernous carotids. Labs were significant for Hemoglobin 9.7, down from 12.4 as of 05/21/2023, Initial high-sensitivity troponin of 4411. CTA of the neck was read as severe stenosis (90%) of the proximal right internal carotid artery. 40% stenosis of the proximal left internal carotid artery. Extensive atherosclerotic plaque. Several segmental pulmonary emboli within the right upper lobe. Interstitial pulmonary edema with partly visualized bilateral pleural effusions. The ED staff did discuss the case with [place] telestroke provider who also assessed the patient prior to the patient being known to have multiple subsegmental PEs, pulmonary edema, and large left pleural effusion. At that time they had recommended giving the patient aspirin. 300 mg of rectal aspirin had been ordered prior to admission. At the time of the exam the patient was lying in bed in no acute distress, she has her eyes open but is not interacting in any meaningful way. I discussed the patient's condition and multiple acute life-threatening findings on arrival with the patient's daughter/POA and daughter's who is bedside. At this time they would like us to admit the patient on comfort care with goals of relieving pain, anxiety/agitation, and distress until she passes from her acute illness. I did discuss with the patient's nurse at bedside that we will not be giving her the rectal Tylenol ordered by the ED staff as she is coming in on comfort measures and this will not change the patient's condition, could increase distress. I personally have canceled this order. Please refer to Dr. Henson's attestation for any changes to the treatment plan Updated Medication List Medication Instructions Recorded Confirmed Type famotidine 20 mg tablet 20 mg PO DAILY gerd 05/21/23 09/11/23 History duloxetine 20 mg capsule,delayed 20 mg PO DAILY #30 caps 05/26/23 09/11/23 Rx release hydrochlorothiazide 25 mg tablet 25 mg PO DAILY #90 tabs 07/26/23 09/11/23 Rx losartan 50 mg tablet 50 mg PO DAILY #90 tabs 07/26/23 09/11/23 Rx light wheelchair #1 ea 08/01/23 08/05/23 Rx acetaminophen 500 mg tablet 500 mg PO BID fever or pain 08/15/23 09/11/23 History (Tylenol Extra Strength) Hospital Stay Data Consultations 09/11/23 10:53 ED Decision to Admit Stat Diagnostic Imagining Performed 09/11/23 09:43 CT angio head w con Stat CT angio neck with con Stat CT head/brain wo con Stat Total Time Total Time Spent Total Time Spent (In Minutes): 10 Supervising Physician Co-Signing Physician Notes PA Supervision Note: I did not personally see or examine the patient today, but I verified all pulido points of MARCO Marcelo's assessment and plan with the following exceptions/additions: None Coding Level of Care Code None Diagnoses Comfort measures only status Z51.5 Pulmonary emboli I26.99 Acute stroke due to ischemia I63.9 Internal carotid artery occlusion I65.29
== END 2023-09-12 23:59 | disposition expired | DRG 951 ==
LOC: ED 09:46 → 3E 11:03 → SUATTDRO 11:03 → 3E 12:07